=== PATIENT | female | born 1990 | race Caucasian/White ===

== ENCOUNTER 2019-05-16 15:06 | Emergency (ER) | payer OTHER ==
[~2019-05-16] VITALS: Ht 175.3 cm; Wt 119.3 kg
[2019-05-16 15:24] VITALS: BP 155/91
--- NOTE | 2019-05-16 15:29 | NUR ---
PT TO LOBBY, PT ALERT AND AWAKE. VS WNL
--- NOTE | 2019-05-16 17:05 | NUR ---
Pt taken to bed 11.
[2019-05-16] MEDS ORDERED: KETOROLAC 60 MG/2 ML VIAL IM ONE (17:35)
--- NOTE | 2019-05-16 17:53 | NUR ---
28 YEAR OLD FEMALE COMPLAINS OF GENERALIZED BODY ACHES. PATIENT STATES THAT THE PAIN IS CHRONIC AND 02/15. PATIENT STATES SHE NEEDS MEDICATION REFILLS OF ZOLOFT AND LAMOTRIGNE. PATIENT IS ALERT AND ORIENTED, BED IN LOWEST POSITION, LOCKED, BED RAIL UPX1. Addendum: 05/16/19 at 1753 by [email or web address] PATIENT DENIES INJURY.
[2019-05-16 18:19] VITALS: BP 145/90
--- NOTE | 2019-05-16 18:19 | NUR ---
Patient discharged with v/s stable. Written and verbal after care instructions given and explained. Patient alert, oriented and verbalized understanding of instructions. Ambulatory with steady gait. All questions addressed prior to discharge. ID band removed. Patient advised to follow up with PMD. Rx of Lamictal 100mg and Zoloft 50mg given. Patient educated on indication of medication including possible reaction and side effects. Opportunity to ask questions provided and answered.
== END 2019-05-16 18:19 | disposition home or self-care (01) ==
LOC: MED 15:06
DX: G89.29 Other chronic pain (principal); M54.5 Low back pain; Z76.0 Encounter for issue of repeat prescription; Z88.6 Allergy status to analgesic agent; Z88.8 Allergy status to other drugs, medicaments and biological substances
CPT/HCPCS: 96372; 99283; J1885